=== PATIENT | female | born 1975 | race Two or more races ===

== ENCOUNTER 2016-08-24 20:15 | Emergency (ER) | payer MEDICAID ==
[~2016-08-24] VITALS: Ht 157.5 cm; Wt 77.1 kg
--- NOTE | 2016-08-24 22:10 | NUR ---
pt ambulatory w/ steady gait for c/o of vaginal itching w/ redness x today, denies any VB, no hematuria, lmp x yesterday. AOx4, afebrile w/ resp even & unlabored, nad noted. pt in gown, pending further evdylan DOMINGUEZ. Urine obtained & sent to lab.
[2016-08-24 23:12] LABS: BILIRUBIN,URINE NEGATIVE (NEGATIVE); BLOOD, URINE 3+ Ery/uL (NEGATIVE); COLOR,URINE YELLOW (YELLOW); KETONES,URINE NEGATIVE (NEGATIVE); LEUKOCYTE ESTERASE ,URINE NEGATIVE (NEGATIVE); NITRITE, URINE NEGATIVE (NEGATIVE); PROTEIN,URINE NEGATIVE (NEGATIVE); UGLUCOSE NEGATIVE (NEGATIVE); UROBILINOGEN,URINE 0.2 EU/dL (0.2)
[2016-08-24 23:16] LABS: APPEARANCE,URINE CLEAR (CLEAR)
[2016-08-24 23:21] LABS: PREGNANCY TEST URINE QUAL NEGATIVE (NEGATIVE)
[2016-08-24 23:25] LABS: RBC,URINE 81-100 /HPF (0-2)
[2016-08-24 23:26] LABS: ADD URINE CULTURE NO; BACTERIA,URINE Rare /HPF (None Seen); MUCUS,URINE Rare /LPF (None Seen); SQUAMOUS EPITHELIAL CELL,UR Few /HPF (None Seen); WBC,URINE 0-2 /HPF (0-3)
[2016-08-25 00:35] VITALS: BP 121/75
== END 2016-08-25 00:36 | disposition home or self-care (01) ==
LOC: ER 20:19
DX: N76.0 Acute vaginitis (principal)
CPT/HCPCS: 81001; 84703; 99283; A4606; Z7610; 81000-TC

== ENCOUNTER 2017-06-01 10:35 | Emergency (ER) | payer MEDICAID ==
[~2017-06-01] VITALS: Ht 160 cm; Wt 72.6 kg
--- NOTE | 2017-06-01 12:00 | NUR ---
PATIENT TO EDC/O COUGH CONGESTION X2 DAYS NAUSEA VOMITED BLOOD X2 BODY ACHES. PATIENT IS AAO4. APPEARS IN NO APPARENT DISTRESS. RESPIRATION EVEN AND UNLABORED. PATIENT IS NON DIAPHORETIC. AFBEIRL.E VSS
[2017-06-01] MEDS ORDERED: MORPHINE SULFATE INJ 4 MG/ML DISP.SYRIN ONE ×2 (12:24→13:37)
[2017-06-01] MEDS ORDERED: FAMOTIDINE/PF INJ 20 MG/2 ML VIAL IV ONE ×2 (12:24→12:30)
[2017-06-01] MEDS ORDERED: ONDANSETRON HCL/PF 4 MG/2 ML VIAL ONE (12:24)
[2017-06-01] MEDS ORDERED: ONDANSETRON HCL/PF 4 MG/2 ML VIAL IVP ONE (12:30)
[2017-06-01] MEDS ORDERED: IV NS 0.9% 1,000 ML BAG IV ONE (12:30)
[2017-06-01] MEDS ORDERED: MORPHINE SULFATE INJ 2 MG/ML DISP.SYRIN IV ONE (12:30)
[2017-06-01 12:35] LABS: BASOPHILS % (AUTO) 0.4 % (0.0-2.0); EOSINOPHILS # (AUTO) 0.1 /CMM (0.0-0.7); EOSINOPHILS % (AUTO) 0.9 % (0.0-6.0); HEMATOCRIT 32 % (33-45); HEMOGLOBIN 10.8 g/dL (11.5-14.8); LYMPHOCYTES # (AUTO) 1.2 /CMM (0.8-4.8); LYMPHOCYTES % (AUTO) 13.2 % (20.0-44.0); MEAN CORPUSCULAR HEMOGLOBIN 25 PG (26.0-33.0); MEAN CORPUSCULAR HGB CONC 33 g/dl (31.0-36.0); MEAN CORPUSCULAR VOLUME 73 fL (82-100); MONOCYTES # (AUTO) 0.5 /CMM (0.1-1.30); MONOCYTES % (AUTO) 5.1 % (2.0-12.0); NEUTROPHILS # (AUTO) 7.2 /CMM (1.8-8.9); NEUTROPHILS % (AUTO) 80.4 % (43.0-81.0); PLATELET COUNT (AUTO) 255 /CMM (150-450); RDW COEFFICIENT OF VARIATION 15.9 (11.5-15.0); RED BLOOD CELL COUNT(AUTO) 4.42 MIL/uL (4.0-5.2)
[2017-06-01 12:36] LABS: APPEARANCE,URINE Slightly Cloudy (CLEAR); BILIRUBIN,URINE SMALL (NEGATIVE); BLOOD, URINE Small Ery/uL (NEGATIVE); COLOR,URINE Dark (YELLOW); KETONES,URINE 15 (NEGATIVE); LEUKOCYTE ESTERASE ,URINE Negative (NEGATIVE); NITRITE, URINE Negative (NEGATIVE); PH,URINE 5.5 (5.0-8.0); PROTEIN,URINE 100 mg/dl (NEGATIVE); UGLUCOSE Negative (NEGATIVE)
--- NOTE | 2017-06-01 12:38 | NUR ---
DUE MEDS GIVEN ORDERED
[2017-06-01 12:45] LABS: CALCIUM, SERUM 8.7 mg/dL (8.5-10.1); CREATININE 0.6 mg/dL (0.6-1.3); POTASSIUM 3.6 mmol/L (3.5-5.1)
[2017-06-01 12:47] LABS: BACTERIA,URINE Rare /HPF (None Seen); SQUAMOUS EPITHELIAL CELL,UR Few /HPF (None Seen); WBC,URINE 0-2 /HPF (0-3)
[2017-06-01 12:52] LABS: BILIRUBIN,TOTAL 0.3 mg/dL (0.2-1.0); TOTAL PROTEIN, SERUM 8.1 g/dL (6.4-8.2)
[2017-06-01 12:55] LABS: INR 0.95 (0.87-1.13); PROTHROMBIN TIME 9.9 SECS (9.5-12.7)
[2017-06-01] MEDS: MORPHINE SULFATE INJ 2 MG/ML DISP.SYRIN IV ONE ×2 (13:38→13:39)
[2017-06-01] MEDS ORDERED: METOCLOPRAMIDE HCL 10 MG/2 ML VIAL ONE (13:42)
[2017-06-01] MEDS ORDERED: METOCLOPRAMIDE HCL 10 MG/2 ML VIAL IV ONE (14:00)
[2017-06-01] MEDS ORDERED: IOHEXOL-300 100 ML VIAL IV ONE (14:04)
--- NOTE | 2017-06-01 15:32 | NUR ---
Patient discharged to home in stable condition. Written and verbal after care instructions given. Patient verbalizes understanding of instruction.
--- NOTE | 2017-06-01 15:32 | NUR ---
IV removed. Catheter intact and site benign. Pressure and 4x4 applied to site. No bleeding noted.
[2017-06-01 15:33] VITALS: BP 123/84
== END 2017-06-01 15:33 | disposition home or self-care (01) ==
LOC: ER 10:37
DX: R11.2 Nausea with vomiting, unspecified (principal); R19.7 Diarrhea, unspecified; R10.13 Epigastric pain; R05 Cough; R09.81 Nasal congestion; Z98.890 Other specified postprocedural states
CPT/HCPCS: 36415; 74160; 80048; 80076; 81001; 83690; 84703; 85025; 85730; 96361; 96374; 96375; 96376; 99285; A4216; A4606; J2270 ×2; J2405; J2765; J3490; Q9967; Z7610; 81000-TC

== ENCOUNTER 2017-10-14 11:55 | Emergency (ER) | payer MEDICAID ==
[~2017-10-14] VITALS: Ht 162.6 cm; Wt 72.6 kg
[2017-10-14 12:03] VITALS: BP 121/65
[2017-10-14] MEDS ORDERED: TDAP [DIPH/PERTUSSIS/TET] 0.5 ML VIAL IM ONE ×2 (12:23→12:30)
--- NOTE | 2017-10-14 12:33 | NUR ---
tdap 0.5ml single dose l deltoid, lot# [id number] exp 08/29/19 given as ordered.
== END 2017-10-14 13:15 | disposition home or self-care (01) ==
LOC: ER 11:56
DX: S40.012A Contusion of left shoulder, initial encounter (principal); Z98.890 Other specified postprocedural states; W01.0XXA Fall on same level from slipping, tripping and stumbling without subsequent striking against object, initial encounter; Y93.89 Activity, other specified; Y92.89 Other specified places as the place of occurrence of the external cause; Y99.8 Other external cause status
CPT/HCPCS: 73030-TC; 90715; A4606; Z7610

== ENCOUNTER 2018-08-18 12:27 | Emergency (ER) | payer MEDICAID ==
[~2018-08-18] VITALS: Ht 157.5 cm; Wt 74.4 kg
--- NOTE | 2018-08-18 12:34 | NUR ---
BIB SELF W C/O VAGINAL BLEEDING x 3 MONTHS AND BILATERAL LOWER QUADRANT PAIN RADIATING TO LOWER BACK. TO ER BED 16, HOOKED TO MONITOR, [facility] MD ALVES
--- NOTE | 2018-08-18 12:38 | NUR ---
PA FOSTER AT BEDSIDE
[2018-08-18 12:58] LABS: BASOPHILS # (AUTO) 0.1 /CMM (0.0-0.2); BASOPHILS % (AUTO) 1.3 % (0.0-2.0); HEMATOCRIT 28 % (33-45); LYMPHOCYTES # (AUTO) 2.3 /CMM (0.8-4.8); LYMPHOCYTES % (AUTO) 30.4 % (20.0-44.0); MEAN CORPUSCULAR HGB CONC 32 g/dl (31.0-36.0); MEAN CORPUSCULAR VOLUME 75 fL (82-100); MONOCYTES # (AUTO) 0.5 /CMM (0.1-1.30); MONOCYTES % (AUTO) 6.5 % (2.0-12.0); NEUTROPHILS # (AUTO) 4.5 /CMM (1.8-8.9); NEUTROPHILS % (AUTO) 59.8 % (43.0-81.0); PLATELET COUNT (AUTO) 270 /CMM (150-450); RED BLOOD CELL COUNT(AUTO) 3.73 MIL/uL (4.0-5.2); WHITE BLOOD COUNT (AUTO) 7.6 K/uL (4.3-11.0)
[2018-08-18] MEDS ORDERED: KETOROLAC TROMETHAMINE INJ 30 MG/ML VIAL IV ONE (13:00)
[2018-08-18] MEDS ORDERED: IV NS 0.9% 1,000 ML BAG IV ONE (13:00)
[2018-08-18 13:05] LABS: CALCIUM, SERUM 8.5 mg/dL (8.5-10.1); CREATININE 0.5 mg/dL (0.6-1.3); POTASSIUM 3.5 mmol/L (3.5-5.1)
--- NOTE | 2018-08-18 13:17 | NUR ---
U/S TECH AT BEDSIDE FOR PELVIC ULTRASOUND.
[2018-08-18 13:32] LABS: APPEARANCE,URINE Clear (CLEAR); BILIRUBIN,URINE Negative (NEGATIVE); BLOOD, URINE Large Ery/uL (NEGATIVE); COLOR,URINE Yellow (YELLOW); KETONES,URINE Negative (NEGATIVE); LEUKOCYTE ESTERASE ,URINE Negative (NEGATIVE); NITRITE, URINE Negative (NEGATIVE); PROTEIN,URINE Trace mg/dl (NEGATIVE); UGLUCOSE Negative (NEGATIVE); UROBILINOGEN,URINE 0.2 EU/dL (0.2)
[2018-08-18] MEDS ORDERED: KETOROLAC TROMETHAMINE 15 MG/ML VIAL ONE (13:40)
[2018-08-18 13:42] LABS: ALBUMIN 3.6 g/dL (3.4-5.0); BILIRUBIN,TOTAL 0.1 mg/dL (0.2-1.0)
--- NOTE | 2018-08-18 13:49 | NUR ---
STAT PELVIC ORDERED AT 1243. ON LUNCH BREAK FROM [id number].ATTEMPTED TO START EXAM AT 1316, RN STOPPED ME FROM BEGINNING EXAM TO HAVE PATIENT URINATE TO OBTAIN URINE SAMPLE FOR ANALYSIS PATIENT RETURNED AT 1323. EXAM START TIME 1323 - END TIME 1340
[2018-08-18 13:54] LABS: BACTERIA,URINE None seen /HPF (None Seen); SQUAMOUS EPITHELIAL CELL,UR Few /HPF (None Seen); WBC,URINE 0-2 /HPF (0-3)
--- NOTE | 2018-08-18 14:16 | NUR ---
CALL FROM LAB. PT IS NOT RHOGAM CANDIDATE
--- NOTE | 2018-08-18 14:44 | NUR ---
IV removed. Catheter intact and site benign. Pressure and 4x4 applied to site. No bleeding noted.Patient discharged to home in stable condition. Written and verbal after care instructions given. Patient verbalizes understanding of instruction.
[2018-08-18 14:46] VITALS: BP 108/67
== END 2018-08-18 14:47 | disposition home or self-care (01) ==
LOC: ER 12:31
DX: N93.9 Abnormal uterine and vaginal bleeding, unspecified (principal); D64.9 Anemia, unspecified; N83.202 Unspecified ovarian cyst, left side; Z98.890 Other specified postprocedural states
CPT/HCPCS: 36415; 76856; 80048; 80076; 81001; 83690; 84703; 85025; 85730; 96374; 99284; A4606; J1885; J7030; 81000-TC

== ENCOUNTER 2018-08-29 04:55 | Emergency (ER) | payer MEDICAID ==
[~2018-08-29] VITALS: Ht 157.5 cm; Wt 78.9 kg
[2018-08-29 05:03] VITALS: BP 118/79
[2018-08-29] MEDS ORDERED: KETOROLAC TROMETHAMINE INJ 60 MG/2 ML VIAL IM ONE ×2 (05:19→05:30)
== END 2018-08-29 05:26 | disposition home or self-care (01) ==
LOC: ER 04:56
DX: N93.8 Other specified abnormal uterine and vaginal bleeding (principal); M54.5 Low back pain; G89.29 Other chronic pain; Z98.890 Other specified postprocedural states
CPT/HCPCS: 96372; 99283; J1885

== ENCOUNTER 2018-12-18 19:25 | Inpatient (IN) | payer MEDICAID ==
[~2018-12-18] VITALS: Ht 157.5 cm; Wt 73.0 kg
--- NOTE | 2018-12-18 19:51 | NUR ---
BIBSELF WITH FAMILY FROM HOME. AAOX4. SPANAISH SPEAKING, FAMILY AT BEDSIDE TO TRANSLATE. NO RESP DISTRESS, BREATHING EVEN AND UNLABORED. AMBULATORY. C/O R STERNAL BORDER PAIN X 2 WEEKS, TIGHTNESS AND PRESSURE LIKE. REPORTS SOB WHEN EXERTING EFFORT. PT ALSO COMPLAINS OF HAVING HARD TIME HAVING BM FOR THE PAST 2 WEEKS. SHE HAVE SMALL HARD BM S AND NOW HAVE A BLEEDING HEMORRHOID. DENIES N/V. PT IS AFEBRILE. TO ER BED 9. MD AT BEDSIDE. ORDERS RECEIVED
[2018-12-18 20:06] LABS: BASOPHILS # (AUTO) 0.1 /CMM (0.0-0.2); EOSINOPHILS % (AUTO) 2.4 % (0.0-6.0); HEMATOCRIT 22 % (33-45); LYMPHOCYTES # (AUTO) 2.1 /CMM (0.8-4.8); LYMPHOCYTES % (AUTO) 29.8 % (20.0-44.0); MEAN CORPUSCULAR HGB CONC 30 g/dl (31.0-36.0); MEAN CORPUSCULAR VOLUME 64 fL (82-100); MONOCYTES # (AUTO) 0.5 /CMM (0.1-1.30); MONOCYTES % (AUTO) 7.4 % (2.0-12.0); NEUTROPHILS # (AUTO) 4.2 /CMM (1.8-8.9); NEUTROPHILS % (AUTO) 59.4 % (43.0-81.0); PLATELET COUNT (AUTO) 211 /CMM (150-450); RED BLOOD CELL COUNT(AUTO) 3.49 MIL/uL (4.0-5.2); WHITE BLOOD COUNT (AUTO) 7.1 K/uL (4.3-11.0)
[2018-12-18 20:10] LABS: HEMOGLOBIN 6.7 g/dL (11.5-14.8)
[2018-12-18 20:14] LABS: CALCIUM, SERUM 8.2 mg/dL (8.5-10.1); CREATININE 0.5 mg/dL (0.6-1.3); POTASSIUM 3.2 mmol/L (3.5-5.1)
[2018-12-18 20:20] LABS: ALBUMIN 3.1 g/dL (3.4-5.0); BILIRUBIN,DIRECT 0.1 mg/dL (0.0-0.2); BILIRUBIN,TOTAL 0.3 mg/dL (0.2-1.0); TOTAL PROTEIN, SERUM 6.4 g/dL (6.4-8.2)
[2018-12-18] MEDS ORDERED: IV NS 0.9% 250 ML IV ONE (20:28)
[2018-12-18] MEDS ORDERED: CT SWABBABLE VALVE TRANS SET 1 EA INFUS.SET MC ONE (20:28)
[2018-12-18] MEDS ORDERED: IOHEXOL-300 100 ML VIAL IV ONE (20:28)
--- NOTE | 2018-12-18 20:30 | NUR ---
AT BEDSIDE FOR RECATLO EXAM. CALLY, EMT AT BEDSIDE FOR BELT AND LINK SHOP SUPERVISOR
[2018-12-18 20:36] LABS: LYMPHOCYTES % (MANUAL) 30 % (16-48); MONOCYTES % (MANUAL) 3 % (0-11.0); NEUTROPHILS % (MANUAL) 67 (42-76)
--- NOTE | 2018-12-18 20:45 | NUR ---
PT WHEELED TO JANETH ZAVALA
--- NOTE | 2018-12-18 21:16 | NUR ---
BED 119-2
[2018-12-18] MEDS ORDERED: ACETAMINOPHEN 325 MG TABLET PO PRN (21:30)
[2018-12-18] MEDS ORDERED: Z GUARD REMEDY 2 OZ OINT TP PRN (21:30)
[2018-12-18] MEDS ORDERED: MAG HYDROX/AL HYDROX/SIMETH 30 ML UDC PO PRN (21:30)
[2018-12-18] MEDS ORDERED: ZOLPIDEM TARTRATE 5 MG TABLET PO PRN (21:30)
[2018-12-18] MEDS ORDERED: MAGNESIUM HYDROXIDE 30 ML UDC PO PRN (21:30)
--- NOTE | 2018-12-18 21:45 | NUR ---
REPORT GIVEN TO TA OSEGUERA FOR PARISH. PT GOING TO 119
[2018-12-18 22:10] VITALS: BP 118/69
--- NOTE | 2018-12-18 22:10 | NUR ---
MACHINE SWEEPER BRUSH MAKER NOTE PATIENT IS AOX3, SPEECH CLEAR, NO CARDIAC OR RESPIRATORY DISTRESS, ON TELE SR, SKIN DRY AND INTACT, LAC #20G, PATENT AND FLUSHING, DRESSING IS CLEAN AND DRY, DAUGHTER AT BEDSIDE, SAFETY MAINTAINED AT ALL TIMES, BED IN LOW, LOCKED POSITION, CALL LIGHT WITHIN REACH,WILL CONTINUE TO MONITOR FOR ANY CHANGES IN CONDITION.
--- NOTE | 2018-12-18 22:18 | NUR ---
PT TRANSPORTED TO UNIT WITH EMT AND RN AT BEDSIDE. NAD NOTED DURING TRANSPORT. PT AMBULATED TO BED [facility]
[2018-12-18] MEDS: HYDROCODONE/APAP 5/325MG 1 EACH TABLET PO PRN (22:21)
[2018-12-18 23:38] VITALS: BP 128/70
[2018-12-18 23:53] VITALS: BP 130/68
[2018-12-19] VITALS (9 sets, daily range): BP systolic 107–131; BP diastolic 60–71
[2018-12-19] MEDS ORDERED: METRONIDAZOLE 500MG/ NS 100ML 500 MG in PREMIX 1 EA IV SCH ×2
[2018-12-19] MEDS: ONDANSETRON HCL/PF 4 MG/2 ML VIAL IVP PRN (00:16)
[2018-12-19] MEDS ORDERED: LEVOFLOXACIN 500 MG /D5W 100ML 100 ML IV ONE (00:26)
[2018-12-19] MEDS ORDERED: METRONIDAZOLE 500MG/ NS 100ML 100 ML IV ONE (00:26)
[2018-12-19] MEDS: LEVOFLOXACIN 500 MG /D5W 100ML 500 MG in PREMIX 1 EA IV SCH (04:11)
[2018-12-19 07:03] LABS: BASOPHILS # (AUTO) 0.1 /CMM (0.0-0.2); BASOPHILS % (AUTO) 1.3 % (0.0-2.0); EOSINOPHILS % (AUTO) 2.8 % (0.0-6.0); HEMATOCRIT 25 % (33-45); HEMOGLOBIN 7.9 g/dL (11.5-14.8); LYMPHOCYTES # (AUTO) 2.3 /CMM (0.8-4.8); LYMPHOCYTES % (AUTO) 39.4 % (20.0-44.0); MEAN CORPUSCULAR HGB CONC 31 g/dl (31.0-36.0); MEAN CORPUSCULAR VOLUME 66 fL (82-100); MONOCYTES # (AUTO) 0.4 /CMM (0.1-1.30); MONOCYTES % (AUTO) 6.8 % (2.0-12.0); NEUTROPHILS # (AUTO) 2.9 /CMM (1.8-8.9); NEUTROPHILS % (AUTO) 49.7 % (43.0-81.0); PLATELET COUNT (AUTO) 178 /CMM (150-450); RED BLOOD CELL COUNT(AUTO) 3.86 MIL/uL (4.0-5.2); WHITE BLOOD COUNT (AUTO) 5.8 K/uL (4.3-11.0)
[2018-12-19 07:17] LABS: CALCIUM, SERUM 7.8 mg/dL (8.5-10.1); CREATININE 0.5 mg/dL (0.6-1.3); MAGNESIUM 1.6 mg/dL (1.8-2.4); PHOSPHORUS 2.4 mg/dL (2.5-4.9); POTASSIUM 3.5 mmol/L (3.5-5.1)
--- NOTE | 2018-12-19 07:30 | NUR ---
TELE/RN OPENING NOTES RECEIVED PATIENT IN BED SLEEPING COMFORTABLY. EASILY AROUSABLE. PATIENT ABLE TO RESPOND TO VERBAL AND TACTILE STIMULI. PATIENT IS ALERT AND ORIENTED X3. PATIENT IS MACEDONIAN SPEAKING WITH DAUGHTER AT BEDSIDE. NO PAIN OR ACUTE DISTRESS AT THIS TIME. RESPIRATION EVEN AND UNLABORED. SKIN IS DRY WARM TO TOUCH. PATIENT NOTED WITH LEFT AC IV ACCESS #20G. INTACT AND PATENT. FLUSHING WELL. NO S/S OF INFECTION OR INFILTRATION. ALL NEEDS ANTICIPATED. CALL LIGHT WITHIN REACHED. BED LOCKED AND IN LOWEST POSITION. SAFETY MAINTAINED. WILL CONTINUE TO MONITOR CLOSELY.
[2018-12-19] MEDS: METRONIDAZOLE 500MG/ NS 100ML 500 MG in PREMIX 1 EA IV SCH ×3 (08:23→20:29)
[2018-12-19 09:22] LABS: BAND % (MANUAL) 2 % (0.0-5.0); EOSINOPHILS % (MANUAL) 2 % (0-4); LYMPHOCYTES % (MANUAL) 37 % (16-48); MONOCYTES % (MANUAL) 7 % (0-11.0); NEUTROPHILS % (MANUAL) 52 (42-76)
[2018-12-19] MEDS: Magnesium 1GM/D5W 100ML PREMIX 100 ML IV SCH ×2 (09:43→10:43)
[2018-12-19] MEDS ORDERED: K PHOS NEUTRAL 250 MG TABLET PO ONE (10:00)
[2018-12-19] MEDS: DOCUSATE SODIUM 100 MG CAPSULE PO SCH (16:20)
--- NOTE | 2018-12-19 19:30 | NUR ---
MS/RN OPENING NOTES PT ALERT AND ORIENTED TIMES 4. PROVIDED SAFETY AND COMFORT. NO PAIN OR ACUTE DISTRESS AT THIS TIME. RESPIRATION EVEN AND UNLABORED. SKIN IS DRY WARM TO TOUCH. IV PATENT. WILL CONTINUE TO MONITER AND CARRY OUT POC.
--- NOTE | 2018-12-19 19:37 | NUR ---
MS/RN CLOSING NOTES PATIENT REMAINED IN STABLE CONDITION THROUGHOUT THE SHIFT. PROVIDED SAFETY AND COMFORT. NO PAIN OR ACUTE DISTRESS AT THIS TIME. RESPIRATION EVEN AND UNLABORED. SKIN IS DRY WARM TO TOUCH. IV ACCESS ON LAC INTACT AND PATENT. FLUSHING WELL. PATIENT WAS SEEN AND EVALUATED BY DR. MANDEL WITH ORDERS TO DO EGD AND COLONOSCOPY ON Saturday12/22/18. ALSO, PATIENT NEEDS TO BE NPO SATURDAY MIDNIGHT WITH COLON PREP. ALSO, RECTAL EXAM DONE BY DR. MANDEL AT BEDSIDE AND NOTED AN EXTERNAL HEMORRHOIDS. ALL NEEDS ANTICIPATED. CALL LIGHT WITHIN REACHED. WILL CONTINUE TO MONITOR. ENDORSED TO PM NURSE CHANNELLE REGARDING THE PROCEDURES.
--- NOTE | 2018-12-19 19:50 | NUR ---
GOT ENDORSEMENT FROM JULES AM SHIFT THAT CONSENT IS PENDING FOR COLONOSCOPY AND EGD. SCHEDULED FOR SATURDAY AND NPO SATURDAY AT MIDNIGHT. GOT CONSENT SIGNED FROM PATIENT AND PLACED IN CHART.
[2018-12-20] VITALS: BP 112/60
[2018-12-20] MEDS: LEVOFLOXACIN 500 MG /D5W 100ML 500 MG in PREMIX 1 EA IV SCH (00:14)
[2018-12-20] MEDS: HYDROCODONE/APAP 5/325MG 1 EACH TABLET PO PRN ×2 (00:38→18:17)
--- NOTE | 2018-12-20 00:39 | NUR ---
ON ROUNDS PT COMPLAINING OF LOWER LEFT CALF PAIN THAT IS ACHING AND IS IN PAIN AN 8 OUT OF 10. ASSESMENT DONE AND NORCO GIVEN TO ALIVIATE PAIN. WILL ENDORSE TO AM SHIFT TO ASSES FURTHER.
[2018-12-20 04:00] VITALS: BP 108/43
[2018-12-20] MEDS: METRONIDAZOLE 500MG/ NS 100ML 500 MG in PREMIX 1 EA IV SCH ×3 (04:48→21:32)
[2018-12-20 06:29] LABS: BASOPHILS # (AUTO) 0.1 /CMM (0.0-0.2); BASOPHILS % (AUTO) 1.6 % (0.0-2.0); EOSINOPHILS % (AUTO) 1.7 % (0.0-6.0); HEMATOCRIT 26 % (33-45); LYMPHOCYTES # (AUTO) 1.3 /CMM (0.8-4.8); LYMPHOCYTES % (AUTO) 21.3 % (20.0-44.0); MEAN CORPUSCULAR HGB CONC 31 g/dl (31.0-36.0); MEAN CORPUSCULAR VOLUME 65 fL (82-100); MONOCYTES # (AUTO) 0.5 /CMM (0.1-1.30); MONOCYTES % (AUTO) 7.4 % (2.0-12.0); NEUTROPHILS # (AUTO) 4.3 /CMM (1.8-8.9); PLATELET COUNT (AUTO) 194 /CMM (150-450); RED BLOOD CELL COUNT(AUTO) 3.93 MIL/uL (4.0-5.2); WHITE BLOOD COUNT (AUTO) 6.3 K/uL (4.3-11.0)
[2018-12-20 06:58] LABS: ALBUMIN 3.1 g/dL (3.4-5.0); BILIRUBIN,TOTAL 0.4 mg/dL (0.2-1.0); CREATININE 0.6 mg/dL (0.6-1.3); MAGNESIUM 1.7 mg/dL (1.8-2.4); PHOSPHORUS 2.3 mg/dL (2.5-4.9); POTASSIUM 3.3 mmol/L (3.5-5.1); TOTAL PROTEIN, SERUM 6.3 g/dL (6.4-8.2)
--- NOTE | 2018-12-20 07:20 | NUR ---
RN INITIAL NOTES PATIENT IN BED ASLEEP BUT EASILY AROUSABLE. DAUGHTER AT BEDSIDE FOR TRANSLATION, PATIENT SPEAKS BOLIVIAN. AMBULATORY WITH STEADY GAIT. NO COMPLAINS OF PAIN NOR SOB. BED ON LOWEST POSITION. CALL LIGHT WITHIN REACH. WILL CONTINUE TO MONITOR
--- NOTE | 2018-12-20 07:26 | NUR ---
MS/ CLOSING NOTES PT ALERT AND ORIENTED TIMES 4. PROVIDED SAFETY AND COMFORT. NO PAIN OR ACUTE DISTRESS AT THIS TIME. RESPIRATION EVEN AND UNLABORED. SKIN IS DRY WARM TO TOUCH. IV PATENT. WILL ENDORSE TO ANTELMO TO CONTINUE TO MONITER
[2018-12-20 08:00] VITALS: BP 96/40
[2018-12-20] MEDS: DOCUSATE SODIUM 100 MG CAPSULE PO SCH ×2 (08:16→16:29)
[2018-12-20 09:00] VITALS: BP 96/40
[2018-12-20] MEDS ORDERED: POTASSIUM CL. PREMIX PERIPHER. 50 ML IV SCH (09:00)
[2018-12-20] MEDS ORDERED: K PHOS NEUTRAL 250 MG TABLET PO ONE (10:00)
--- NOTE | 2018-12-20 10:01 | NUR ---
RN NOTES PATIENT IS COMPLAINING OF HAVING BURNING PAIN ON HER LEFT AC IV SITE WHILE KCL IS RUNNING AT 50ML/HR. PATIENT REQUESTED TO REMOVE THE SITE AND JUST INSERT A NEW ONE. INSERTED A NEW SITE: LEFT HAND #20. RAN THE KCL AND STILL GALVIN. CALLED PHARMACY AND THEY WILL CHANGE IT TO PO INSTEAD OF IV.
[2018-12-20] MEDS: Magnesium 1GM/D5W 100ML PREMIX 100 ML IV SCH ×2 (10:05→11:12)
[2018-12-20] MEDS: POTASSIUM CHLORIDE 20 MEQ TAB.PRT.SR PO SCH ×2 (10:05→11:12)
[2018-12-20 12:00] VITALS: BP 96/40
--- NOTE | 2018-12-20 15:23 | NUR ---
RN NOTES LIZETH MONCADA AT BEDSIDE, PATIENT AWARE THAT SHE IS GOING TO HAVE A PROCEDURE ON SATURDAY - EGD AND COLONOSCOPY. CONSENT SIGNED IN CHART. NEW ORDER OF DVT PUMPS PER AP.
[2018-12-20 16:00] VITALS: BP 118/79
[2018-12-20] MEDS: ONDANSETRON HCL/PF 4 MG/2 ML VIAL IVP PRN (18:17)
--- NOTE | 2018-12-20 18:29 | NUR ---
RN NOTES PATIENT CALLED AND VOMITED X1. WAS GIVEN ZOFRAN. PATIENT COMPLAINED OF CHEST PAIN, AND WAS CRYING FOR PAIN. ADMINISTERED NORCO FOR PAIN, CALLED [facility] TO PAGE LIZETH MONCADA TO GET ORDERS. WAITING FOR A CALL BACK Addendum: 12/20/18 at 1836 by ELLEN DE GUZMAN RN CHEST PAIN LEVEL 8/10, BUT PER PATIENT, PAIN COMES AND GOES SO AROUND 5/10 AND 8/10
--- NOTE | 2018-12-20 18:33 | NUR ---
RN NOTES FAMILY AT BEDSIDE. PATIENT STOPPED CRYING AND SAYING PAIN WENT DOWN TO AROUND 3/10.
--- NOTE | 2018-12-20 18:45 | NUR ---
TA STANLEY NP CALLED BACK. ORDERED CXR AND EKG STAT. ORDERED CARRIED OUT.
--- NOTE | 2018-12-20 18:57 | NUR ---
RN CLOSING NOTE PATIENT IN BED AWAKE AND ALERT. CHEST PAIN AND NAUSEA STOPPED. ZOFRAN AND NORCO GIVEN. ORDERS FROM MD CARRIED OUT. CXR AT BEDSIDE AT THIS TIME. VS STABLE THROUGHOUT THE SHIFT. ALL MEDS GIVEN. NO COMPLAINS OF ANY SOB, ON ROOM AIR. FAMILY AT BEDSIDE. BED IN LOWEST POSITION. CALL LIGHT WITHIN REACH. WILL ENDORSE TO NOC SHIFT FOR PARISH
--- NOTE | 2018-12-20 19:14 | NUR ---
RT NOTE PRIOR TO PERFORMING EKG. RT AKSED PT IF SHE WANTED A FEMALE NURSE PRESENT FOR PROCEDURE. PT SAID NO. FAMILY BEDSIDE. TA HUGHES AWARE. STAT EKG RESULTS RELAYED TO TA HUGHES
[2018-12-21] VITALS: BP 122/77
[2018-12-21] MEDS: LEVOFLOXACIN 500 MG /D5W 100ML 500 MG in PREMIX 1 EA IV SCH (00:32)
[2018-12-21] MEDS: METRONIDAZOLE 500MG/ NS 100ML 500 MG in PREMIX 1 EA IV SCH ×3 (05:28→20:44)
[2018-12-21 06:48] LABS: CREATININE 0.5 mg/dL (0.6-1.3); MAGNESIUM 1.8 mg/dL (1.8-2.4); PHOSPHORUS 2.6 mg/dL (2.5-4.9); POTASSIUM 3.8 mmol/L (3.5-5.1)
--- NOTE | 2018-12-21 07:01 | NUR ---
MS/ CLOSING NOTES PT ALERT AND ORIENTED TIMES 4. PROVIDED SAFETY AND COMFORT. NO PAIN OR ACUTE DISTRESS AT THIS TIME. RESPIRATION EVEN AND UNLABORED. SKIN IS DRY WARM TO TOUCH. IV PATENT.. CHANGED IV SITE TO RIGHT R FOREARM 22 G. WILL ENDORSE TO AM SHIFT TO POC.
[2018-12-21 07:11] LABS: BASOPHILS # (AUTO) 0.1 /CMM (0.0-0.2); HEMATOCRIT 25 % (33-45); HEMOGLOBIN 7.9 g/dL (11.5-14.8); LYMPHOCYTES # (AUTO) 1.8 /CMM (0.8-4.8); LYMPHOCYTES % (AUTO) 31.3 % (20.0-44.0); MEAN CORPUSCULAR HGB CONC 31 g/dl (31.0-36.0); MEAN CORPUSCULAR VOLUME 66 fL (82-100); MONOCYTES # (AUTO) 0.5 /CMM (0.1-1.30); MONOCYTES % (AUTO) 8.4 % (2.0-12.0); NEUTROPHILS # (AUTO) 3.4 /CMM (1.8-8.9); NEUTROPHILS % (AUTO) 57.3 % (43.0-81.0); PLATELET COUNT (AUTO) 203 /CMM (150-450); RED BLOOD CELL COUNT(AUTO) 3.86 MIL/uL (4.0-5.2); WHITE BLOOD COUNT (AUTO) 5.9 K/uL (4.3-11.0)
[2018-12-21 08:00] VITALS: BP 120/66
--- NOTE | 2018-12-21 08:00 | NUR ---
RN NOTES RECEIVED PATIENT IN THE BED RESTING. PATIENT AMERICAN SPEAKER A/O X4. PATIENT REFUSED PAIM, NO ACUTE RESPIRATORY DISTRESS. PATIENT AMBULATORY SELF CARE. IV ACCESS ON RIGHT FA INTACT SL. V/S STABLE. ENCOURAGED TO EXPRESS FEELINGS AND CONCERNS. PATIENT REFUSED RECTAL BLEEDING. ABDOMEN SOFT TO TOUCH, ACTIVE BOWEL SOUNDS IN FOUR QUADRANTS. CALL LIGHT WITHIN TO REACH. CONTINUED MONITORING. DAUGHTER NEXT TO THE BED.
[2018-12-21] MEDS: DOCUSATE SODIUM 100 MG CAPSULE PO SCH ×2 (10:44→17:01)
--- NOTE | 2018-12-21 11:24 | NUR ---
RN NOTES SEEN PATIENT BY EMILY MONCADA, NO NEW ORDERS AT THIS TIME, CONTINUED MONITORING.
[2018-12-21 16:30] VITALS: BP 133/95
--- NOTE | 2018-12-21 18:30 | NUR ---
RN NOTES PATIENT STABLE, SIGN CONSENT FORM, ADMINISTERED SCHEDULED MEDICATION, V/S STABLE. PATIENT AMBULATORY SELF CARE. PATIENT REFUSED PAIN, NO ACUTE RESPIRATORY DISTRESS. CALL LIGHT WITHIN TO REACH. ENDORSED ONCOMING NURSE FOLLOW PLAN OF CARE.
[2018-12-21] MEDS ORDERED: PEG 3350/NA SULF,BICARB,CL/KCL 4,000 ML BOTTLE PO ONE (19:30)
[2018-12-21 20:00] VITALS: BP 133/61
--- NOTE | 2018-12-21 20:00 | NUR ---
MS RN NOTE PT IN BED AWAKE. A/O X 4 SRI LANKAN SPEAKING. NO DISTRESS OR DISCOMFORT NOTED. DENIES PAIN. WILL START HER ON GOLYTELY ORDERED. RFA #22 G S/L INTACT AND PATENT. ALL NEEDS ATTENDED. VSS. CONTINUE TO MONITOR HER.
--- NOTE | 2018-12-21 23:04 | NUR ---
MS RN NOTE PT IN BED AWAKE. DRINKING GOLYTELY, PT IS HAVING TOUGH TIME DRINKING, STATES "TASTE IS AWFUL". REPORT GIVEN TO NURSE OLSEN FOR CONTINUE TO CARE.
[2018-12-22] VITALS: BP 126/59
[2018-12-22] MEDS: LEVOFLOXACIN 500 MG /D5W 100ML 500 MG in PREMIX 1 EA IV SCH (00:28)
--- NOTE | 2018-12-22 01:32 | NUR ---
REPORT RECEIVED FROM CELE TAI. WILL CONTINUE CARE. Addendum: 12/22/18 at 0134 by LIZ MUÑIZ RN TIME AND DATE 12/21 1749
--- NOTE | 2018-12-22 01:35 | NUR ---
PT REFUSED FINISHING [email or web address], DOES NOT LIKE THE TASTE OF WATER, FEELS LIKE THROWING UP, EXPLAINED THAT EGD/COLONOSCOPY WOULD NOT BE DONE IS SHE DID NOT FINISH THE [email or web address], PT DOES NOT WANT THE TEST ANYMORE, WILL CANCEL PROCEDURE.
[2018-12-22 04:00] VITALS: BP 112/60
[2018-12-22] MEDS: METRONIDAZOLE 500MG/ NS 100ML 500 MG in PREMIX 1 EA IV SCH ×2 (04:32→12:11)
--- NOTE | 2018-12-22 06:19 | NUR ---
RN MS CLOSING NOTE PT REMAINS IN BED SLEEPING, BREATHING EVEN AND UNLABORED ON RA. NO COMPLAIN OF PAIN OR DISCOMFORT AT THE MOMENT. IV ACCESS ON THE R FA 22G SL. PROCEDURE IN AM CANCELLED, PT DID NOT FINISH GOLYTELY. BED IN LOWEST LOCKED POSITION, CALL LIGHT WITHIN REACH AT ALL TIMES, WILL ENDORSE TO DAY NURSE FOR PARISH.
[2018-12-22 06:37] LABS: BASOPHILS # (AUTO) 0.1 /CMM (0.0-0.2); EOSINOPHILS % (AUTO) 1.3 % (0.0-6.0); HEMATOCRIT 27 % (33-45); HEMOGLOBIN 8.2 g/dL (11.5-14.8); LYMPHOCYTES # (AUTO) 1.6 /CMM (0.8-4.8); LYMPHOCYTES % (AUTO) 22.3 % (20.0-44.0); MEAN CORPUSCULAR HGB CONC 31 g/dl (31.0-36.0); MEAN CORPUSCULAR VOLUME 65 fL (82-100); MONOCYTES # (AUTO) 0.5 /CMM (0.1-1.30); MONOCYTES % (AUTO) 7.6 % (2.0-12.0); NEUTROPHILS # (AUTO) 4.8 /CMM (1.8-8.9); NEUTROPHILS % (AUTO) 67.8 % (43.0-81.0); PLATELET COUNT (AUTO) 211 /CMM (150-450); RED BLOOD CELL COUNT(AUTO) 4.09 MIL/uL (4.0-5.2); WHITE BLOOD COUNT (AUTO) 7.1 K/uL (4.3-11.0)
[2018-12-22 06:59] LABS: CALCIUM, SERUM 8.2 mg/dL (8.5-10.1); CREATININE 0.5 mg/dL (0.6-1.3); MAGNESIUM 1.7 mg/dL (1.8-2.4); PHOSPHORUS 3.2 mg/dL (2.5-4.9); POTASSIUM 3.9 mmol/L (3.5-5.1)
--- NOTE | 2018-12-22 07:25 | NUR ---
MS/RN OPENING NOTES RECEIVED PATIENT IN BED AWAKE AND ABLE TO MAKE NEEDS KNOWN. ALERT AND ORIENTED X4 FAROESE SPEAKING. NO PAIN OR ACUTE DISTRESS AT THIS TIME. RESPIRATION EVEN AND UNLABORED. SKIN IS DRY WARM TO TOUCH. NOTED WITH RFA #22 G S/L INTACT AND PATENT. FLUSHING WELL. NO S/S OF INFECTION OR INFILTRATION. ALL NEEDS ANTICIPATED. CALL LIGHT WITHIN REACHED. BED LOCKED AND IN LOWEST POSITION. SAFETY MAINTAINED. CONTINUE TO MONITOR CLOSELY.
[2018-12-22 08:00] VITALS: BP_SYST 103; BP_DIAS 48; BP_DIAS 68
[2018-12-22] MEDS: DOCUSATE SODIUM 100 MG CAPSULE PO SCH ×2 (08:37→16:45)
[2018-12-22] MEDS: Magnesium 1GM/D5W 100ML PREMIX 100 ML IV SCH ×2 (09:29→10:42)
[2018-12-22 16:00] VITALS: BP_SYST 108; BP_SYST 140; BP_DIAS 54; BP_DIAS 63
--- NOTE | 2018-12-22 18:50 | NUR ---
MS/RN CLOSING NOTES PATIENT REMAINS IN STABLE CONDITION. PROVIDED COMFORT AND SAFETY. ACCORDING TO DR. MONCADA PATIENT HAS TO SIGN AN AMA FORM DUE TO HER REFUSING TO DO THE EGD AND COLONOSCOPY PROCEDURE THAT WAS RECOMMENDED BY DR. MANDEL. PATIENT WAS ABLE TO SIGN THE AMA FORM. PATIENT IS WAITING FOR TO COME AND PICK HER UP. ALL NEEDS ANTICIPATED. KEPT CLEAN AND DRY CALL LIGHT WITHIN REACHED. BED LOCKED AND IN LOWEST POSITION. WILL CONTINUE TO MONITOR. ENDORSED TO PM NURSE FOR PARISH.
--- NOTE | 2018-12-22 19:20 | NUR ---
RN OPENING NOTES PT RECEIVED AWAKE, SITTING IN THE CHAIR. ON ROOM AIR, BREATHING EVEN AND UNLABORED. DIVEHI/CHINESE SPEAKING. WAITING FOR TO COME PICK HER UP AT 1930, LEAVING AMA. IV TO RFA WAS REMOVED BY DAY RN. BED IN LOW/LOCKED POSITION WITH CALL LIGHT IN REACH. BILAT. UPPER SIDE RAILS IN PLACE. WILL CONTINUE TO MONITOR
[2018-12-22 19:30] VITALS: BP 128/74
--- NOTE | 2018-12-22 19:40 | NUR ---
RN NOTES PT LEFT UNIT IN STABLE CONDITION ACCOMPANIED BY 2 FAMILY MEMBERS. IV REMOVED, WRISTBANDS REMOVED. AMA PAPERWORK SIGNED. BELONGINGS LEFT WITH PT
== END 2018-12-22 19:40 | disposition home or self-care (01) | DRG 254 ==
LOC: ER 19:27 → TELE1 21:23 → MEDSG1 12-19 08:59
PROVIDERS: ADMIT Internal Medicine; ATTEND Hospitalist
PROC: 30233N1 Transfusion of Nonautologous Red Blood Cells into Peripheral Vein, Percutaneous Approach (ICD-10-PCS; principal; 2018-12-18)
DX: K64.9 Unspecified hemorrhoids (principal); E44.0 Moderate protein-calorie malnutrition; E83.42 Hypomagnesemia; E83.39 Other disorders of phosphorus metabolism; K57.92 Diverticulitis of intestine, part unspecified, without perforation or abscess without bleeding; E87.6 Hypokalemia; Z68.30 Body mass index [BMI] 30.0-30.9, adult; N93.8 Other specified abnormal uterine and vaginal bleeding; Z98.890 Other specified postprocedural states; Z91.14 Patient's other noncompliance with medication regimen; Z91.19 Patient's noncompliance with other medical treatment and regimen; Z98.891 History of uterine scar from previous surgery; D50.9 Iron deficiency anemia, unspecified; N83.201 Unspecified ovarian cyst, right side
CPT/HCPCS: 36415; 71045-TC; 80048-TC; 80053-TC; 80076-TC; 82378; 83540-TC; 83690-TC; 83735-TC; 84100-TC; 84484-TC; 84703-TC; 85025-TC; 85610-TC; 86301; 86850-TC; 86921-TC; 87081-TC; 93307-TC; A4216; G0378; J1956; J2405; J3475; J3480; J3490; J7040; J7050; P9016-BL; Q9967

== ENCOUNTER 2019-01-10 01:04 | Emergency (ER) | payer MEDICAID ==
[~2019-01-10] VITALS: Ht 157.5 cm; Wt 73.0 kg
[2019-01-10 01:18] VITALS: BP 113/67
== END 2019-01-10 02:28 | disposition home or self-care (01) ==
LOC: ER 01:15
DX: I80.8 Phlebitis and thrombophlebitis of other sites (principal); D64.9 Anemia, unspecified; Z98.890 Other specified postprocedural states
CPT/HCPCS: 73090-TC

== ENCOUNTER 2019-06-10 14:52 | Inpatient (IN) | payer MEDICAID ==
[~2019-06-10] VITALS: Ht 154.9 cm; Wt 74.8 kg
[2019-06-10] MEDS ORDERED: KETOROLAC TROMETHAMINE INJ 30 MG/ML VIAL ONE (15:24)
[2019-06-10] MEDS ORDERED: KETOROLAC TROMETHAMINE INJ 30 MG/ML VIAL IV ONE (15:30)
[2019-06-10] MEDS ORDERED: IV NS 0.9% 500 ML BAG IV ONE (15:30)
[2019-06-10 15:34] LABS: BASOPHILS # (AUTO) 0.1 /CMM (0.0-0.2); BASOPHILS % (AUTO) 1.5 % (0.0-2.0); HEMATOCRIT 24 % (33-45); LYMPHOCYTES # (AUTO) 1.6 /CMM (0.8-4.8); LYMPHOCYTES % (AUTO) 21.3 % (20.0-44.0); MEAN CORPUSCULAR HGB CONC 29 g/dl (31.0-36.0); MEAN CORPUSCULAR VOLUME 61 fL (82-100); MONOCYTES # (AUTO) 0.5 /CMM (0.1-1.30); MONOCYTES % (AUTO) 7.4 % (2.0-12.0); NEUTROPHILS % (AUTO) 67.8 % (43.0-81.0); PLATELET COUNT (AUTO) 226 /CMM (150-450); WHITE BLOOD COUNT (AUTO) 7.4 K/uL (4.3-11.0)
--- NOTE | 2019-06-10 15:35 | NUR ---
PT AAOX4. AMBULATORY C/O MID CHEST PAIN 6/10 AND BACK FLANK PAIN. PLACED ON MONITOR AND PULSE OX. MD AT BEDSIDE FOR EVAL.
--- NOTE | 2019-06-10 15:36 | NUR ---
BLOOD COLLECTED AND SENT TO LAB
[2019-06-10 15:42] LABS: CALCIUM, SERUM 8.6 mg/dL (8.5-10.1); CARBON DIOXIDE 26 mmol/L (21-32); CHLORIDE 107 mmol/L (98-107); CREATININE 0.6 mg/dL (0.6-1.3); GLUCOSE 104 mg/dL (74-106); POTASSIUM 3.6 mmol/L (3.5-5.1); SODIUM SERUM 142 mmol/L (136-145); UREA NITROGEN, BLOOD 9 mg/dL (7-18)
[2019-06-10 15:56] LABS: HEMOGLOBIN 6.9 g/dL (11.5-14.8)
--- NOTE | 2019-06-10 16:23 | NUR ---
CALLED NURSING SUP FOR TELE BED.
--- NOTE | 2019-06-10 17:02 | NUR ---
NURSING SUP GAVE TELE BED 316-2.
[2019-06-10] MEDS ORDERED: HYDROCODONE/APAP 5/325MG 1 EACH TABLET PO PRN (17:30)
[2019-06-10] MEDS ORDERED: TEMAZEPAM 15 MG CAPSULE PO PRN (17:30)
[2019-06-10] MEDS ORDERED: MAG HYDROX/AL HYDROX/SIMETH 30 ML UDC PO PRN (17:30)
[2019-06-10] MEDS ORDERED: ACETAMINOPHEN 325 MG TABLET PO PRN (17:30)
[2019-06-10] MEDS ORDERED: ONDANSETRON HCL/PF 4 MG/2 ML VIAL IVP PRN (17:30)
[2019-06-10] MEDS ORDERED: MORPHINE SULFATE INJ 4 MG/ML DISP.SYRIN IV PRN (17:30)
[2019-06-10] MEDS ORDERED: MAGNESIUM HYDROXIDE 30 ML UDC PO PRN (17:30)
--- NOTE | 2019-06-10 17:31 | NUR ---
Report given to Gama CHAPPELL for gil
[2019-06-10 17:37] LABS: BAND % (MANUAL) 9 % (0.0-5.0); BASOPHILS % (MANUAL) 1 % (0.0-2.0); EOSINOPHILS % (MANUAL) 3 % (0-4); LYMPHOCYTES % (MANUAL) 22 % (16-48); MONOCYTES % (MANUAL) 8 % (0-11.0); NEUTROPHILS % (MANUAL) 57 (42-76)
--- NOTE | 2019-06-10 18:10 | NUR ---
received patient from er via gurney. patient is a/ox4, able to make needs known. ambulatory. not in any form of distress. no sob. chest pain 3/10 non radiating noted, will administer pain meds as ordered. hooked up to telemonitor, sb hr 58. situated the patient to the room. VSS. needs attended. instructed to use call light when assistance is needed. belongings checked and noted on belongings form by Radha collier. bed in low/locked position, siderails upx2, call light in reach. will endorsed to night rn for gil.
--- NOTE | 2019-06-10 19:48 | NUR ---
EXCAVATOR BACKHOE OPERATORBOILER REPAIR SUPERVISOR NOTES REPORT RECEIVED FROM RAFIQ CHAPPELL. PATIENT AWAKE AND RESTING IN BED. A/O X4. ON ROOM AIR. NO S/S OF ACUTE RESPIRATORY DISTRESS AND NO COMPLAINTS OF PAIN AT THIS TIME. TELE MONITOR READING SINUS RHYTHM, HEART RATE 63. HGB CURRENTLY 6.9, ORDER TO TRANSFUSE 1 UNIT PRBC PRESENT. IV PRESENT ON LEFT AC, SIZE 20, INTACT & PATENT, HEP LOCKED. BED LOCKED, LOW-WALTON'S POSITION, SIDE RAILS X2, CALL LIGHT WITHIN REACH. WILL CONTINUE TO MONITOR.
[2019-06-10 20:00] VITALS: BP 104/64
[2019-06-10 22:55] VITALS: BP 104/58
--- NOTE | 2019-06-10 22:58 | NUR ---
MS RN NOTES PATIENT RECEIVING 1 UNIT OF PRBC. VITAL SIGNS - BP: 104/58 HR: 49 RR: 18 TEMP: 97.8 SPO2: 100 ON ROOM AIR. WILL CONTINUE TO MONITOR.
[2019-06-10 23:10] VITALS: BP 103/60
--- NOTE | 2019-06-10 23:10 | NUR ---
MS RN NOTES 1 UNIT OF PRBC INFUSING. VITAL SIGNS - BP: 103/60 HR: 50 RR: 18 TEMP: 98.2 SPO2: 100 ON ROOM AIR. NO S/S OF ACUTE RESPIRATORY DISTRESS OR TRANSFUSION REACTION. PATIENT DENIES ANY SOB OR PAIN. WILL CONTINUE TO MONITOR.
[2019-06-10 23:23] VITALS: BP 132/121
--- NOTE | 2019-06-10 23:23 | NUR ---
MS RN NOTES PATIENT C/O OF SOB AND CHEST PAIN. BLOOD TRANSFUSION STOPPED. 4L OF O2 STARTED VIA NC. VITAL SIGNS - BP: 132/121 HR: 67 SPO2:100 TEMP: 98.2. TARUN FELICIANO CONTACTED AND MADE AWARE.
[2019-06-10 23:27] VITALS: BP 130/77
--- NOTE | 2019-06-10 23:27 | NUR ---
MS RN NOTES PATIENT STATED RELIEF OF CHEST PAIN AND SOB WITH 4L OF O2 VIA NC. VITAL SIGNS - BP: 130/77 HR: 56 RR: 22 SPO2: 100 TEMP: 98.2. PER TARUN SHOE STAINER, OK TO CONTINUE TRANSFUSING 1 UNIT PRBC
[2019-06-10 23:43] VITALS: BP 122/67
--- NOTE | 2019-06-10 23:43 | NUR ---
MS RN NOTES PATIENT'S VITAL SIGNS - BP: 122/67 HR: 45 RR: 18 TEMP: 98.2 SPO2: 100 ON 2L NC. 1 UNIT OF PRBC TRANSFUSING AT 80ML/HR. WILL CONTINUE TO MONITOR AT THE BEDSIDE.
--- NOTE | 2019-06-11 00:08 | NUR ---
MS RN NOTES PATIENTS VITAL SIGNS - BP: 121/65 HR: 51 RR: 18 SPO2: 100 ON 2L NC. NO S/S OF ACUTE RESPIRATORY DISTRESS. PATIENT DENIES ANY CHEST OR SOB. 1 UNIT OF PRBC TRANSFUSING AT 80ML/HR. WILL CONTINUE TO MONITOR.
--- NOTE | 2019-06-11 02:20 | NUR ---
MS RN NOTES 1 UNIT OF PRBC CONTINUING TO TRANSFUSE. NO S/S OF TRANSFUSION REACTION. PATIENT DENIES CHEST PAIN OR SOB. VITAL SIGNS - BP: 102/60 HR: 56 RR: 18 TEMP: 98.9 SPO2: 100 ON 2L NC. WILL CONTINUE TO MONITOR.
[2019-06-11 02:50] VITALS: BP 100/61
--- NOTE | 2019-06-11 02:55 | NUR ---
MS RN NOTES TRANSFUSION OF 1 UNIT PRBC COMPLETED. VITAL SIGNS - BP: 100/61 HR: 55 RR: 18 TEMP: 98.4 SPO2: 100 ON 2L NC. NO S/S OF ACUTE RESPIRATORY DISTRESS. PATIENT DENIES CHEST PAIN OR SOB. CALL LIGHT WITHIN REACH. WILL CONTINUE TO MONITOR.
[2019-06-11 05:05] VITALS: BP 109/70
--- NOTE | 2019-06-11 07:00 | NUR ---
MS?RN Opening Note Received patient AOx4, able to responds all stimuli. Denies pain or any discomfort. Skin is warm to touch kept clean/dry, intact IV site, Pt on oxygen 2L via n/c, respiratory even and unlabored. Kept lower bed position with elevated HOB. Call light within reach, will continue to monitor.
[2019-06-11] MEDS: PANTOPRAZOLE 40 MG TABLET.DR PO SCH (07:04)
[2019-06-11 07:07] LABS: BASOPHILS # (AUTO) 0.1 /CMM (0.0-0.2); BASOPHILS % (AUTO) 2.1 % (0.0-2.0); EOSINOPHILS % (AUTO) 2.9 % (0.0-6.0); HEMATOCRIT 25 % (33-45); HEMOGLOBIN 7.6 g/dL (11.5-14.8); LYMPHOCYTES # (AUTO) 1.8 /CMM (0.8-4.8); LYMPHOCYTES % (AUTO) 36.3 % (20.0-44.0); MEAN CORPUSCULAR HGB CONC 31 g/dl (31.0-36.0); MEAN CORPUSCULAR VOLUME 65 fL (82-100); MONOCYTES # (AUTO) 0.4 /CMM (0.1-1.30); MONOCYTES % (AUTO) 7.7 % (2.0-12.0); NEUTROPHILS # (AUTO) 2.5 /CMM (1.8-8.9); PLATELET COUNT (AUTO) 191 /CMM (150-450); RED BLOOD CELL COUNT(AUTO) 3.84 MIL/uL (4.0-5.2); WHITE BLOOD COUNT (AUTO) 4.9 K/uL (4.3-11.0)
--- NOTE | 2019-06-11 07:07 | NUR ---
MS RN CLOSING NOTES PATIENT AWAKE AND RESTING IN BED. A/O X 4. ON 2L NC. NO S/S OF ACUTE RESPIRATORY DISTRESS AND NO COMPLAINTS OF ANY PAIN AT THIS TIME. IV PRESENT ON LEFT AC, SIZE 20, INTACT & PATENT, HEP LOCKED. BED LOCKED, SEMI-WALTON'S POSITION WITH FEET ELEVATED, SIDE RAILS X2, CALL LIGHT WITHIN REACH. WILL ENDORSE TO DAY SHIFT NURSE TO FOLLOW PLAN OF CARE.
[2019-06-11 07:17] LABS: CALCIUM, SERUM 8.3 mg/dL (8.5-10.1); CREATININE 0.5 mg/dL (0.6-1.3); MAGNESIUM 1.8 mg/dL (1.8-2.4); PHOSPHORUS 2.8 mg/dL (2.5-4.9); POTASSIUM 3.6 mmol/L (3.5-5.1)
[2019-06-11 07:56] VITALS: BP 111/66
[2019-06-11] MEDS ORDERED: INFLUENZA VACCINE 2019-20 0.5 ML DISP.SYRIN IM ONE (10:00)
--- NOTE | 2019-06-11 10:00 | NUR ---
Patient refused flue shot.
[2019-06-11 11:52] LABS: LYMPHOCYTES % (MANUAL) 36 % (16-48); MONOCYTES % (MANUAL) 4 % (0-11.0); NEUTROPHILS % (MANUAL) 60 (42-76)
[2019-06-11 15:37] LABS: BASOPHILS # (AUTO) 0.1 /CMM (0.0-0.2); BASOPHILS % (AUTO) 1.1 % (0.0-2.0); EOSINOPHILS % (AUTO) 2.6 % (0.0-6.0); HEMATOCRIT 25 % (33-45); HEMOGLOBIN 7.5 g/dL (11.5-14.8); LYMPHOCYTES # (AUTO) 1.8 /CMM (0.8-4.8); MEAN CORPUSCULAR HGB CONC 30 g/dl (31.0-36.0); MEAN CORPUSCULAR VOLUME 65 fL (82-100); MONOCYTES # (AUTO) 0.4 /CMM (0.1-1.30); MONOCYTES % (AUTO) 6.4 % (2.0-12.0); NEUTROPHILS # (AUTO) 3.3 /CMM (1.8-8.9); NEUTROPHILS % (AUTO) 57.9 % (43.0-81.0); PLATELET COUNT (AUTO) 186 /CMM (150-450); RED BLOOD CELL COUNT(AUTO) 3.84 MIL/uL (4.0-5.2); WHITE BLOOD COUNT (AUTO) 5.6 K/uL (4.3-11.0)
--- NOTE | 2019-06-11 15:57 | NUR ---
Social service consult requested by Dr. Bess for clinic resources in the community. CHIEF RESERVOIR ENGINEERING reviewed chart. Per MD notes, pt. is a 43-year-old female patient who presented to the emergency department with a chief complaint of ongoing chest pain for the last 3 days, with associated back pain. According to the patient, the chest pain is worst when she takes a deep breath. The patient denies any significant medical history except for chronic anemia, which she was admitted also at [facility] in the past. The patient does not take any medications on a regular basis. The patient denies tobacco, alcohol, or illicit drug use. Furthermore, the patient also states that she's been having menometrorrhagia for the last 3 months. Pt. needs resources for clinics and [facility]. CHIEF RESERVOIR ENGINEERING met with the pt. bedside. Pt. is alert and oriented x 4. Pt resides with her family in [facility]. Pt is and has children. CHIEF RESERVOIR ENGINEERING provided pt. with the following resources: information to [facility] and other local [facility] and a list of [facility] health care centers and community clinics in [facility] and all of [facility]. No other social service needs are requested at this time. [facility] updated [facility] [place] regarding providing pt. with the requested resources.
[2019-06-11 16:00] VITALS: BP 113/70
--- NOTE | 2019-06-11 18:00 | NUR ---
MS/RN Closing note Pt is in bed comfortably and sleeping, denies pain or discomfort, skin is warm to touch, clean/dry. Kept lower bed positioned with elevated HOB. Respiratory even and unlabored. Call light within reach, will continue to monitor.
[2019-06-11 18:56] LABS: APPEARANCE,URINE SL CLOUDY (CLEAR); BILIRUBIN,URINE SMALL (NEGATIVE); BLOOD, URINE LARGE Ery/uL (NEGATIVE); COLOR,URINE AMBER (YELLOW); KETONES,URINE NEGATIVE (NEGATIVE); LEUKOCYTE ESTERASE ,URINE NEGATIVE (NEGATIVE); NITRITE, URINE NEGATIVE (NEGATIVE); PROTEIN,URINE 30 mg/dl (NEGATIVE); UGLUCOSE NEGATIVE (NEGATIVE); UROBILINOGEN,URINE 0.2 EU/dL (0.2)
[2019-06-11 19:03] LABS: BACTERIA,URINE Few /HPF (None Seen); RBC,URINE TOO NUMEROUS TO COUN /HPF (0-2); SQUAMOUS EPITHELIAL CELL,UR Few /HPF (None Seen)
[2019-06-11 19:04] LABS: MUCUS,URINE Many /LPF (None Seen)
--- NOTE | 2019-06-11 19:05 | NUR ---
MS/RN OPENING NOTES: RECEIVED PATIENT A/OX4. RESTING IN BED COMFORTABLY. VERBALLY RESPONSIVE AND ABLE TO MAKE NEEDS KNOWN. NO SOB NOTED, NO S/S OF ACUTE DISTRESS, BREATHING EVEN AND UNLABORED. NO COMPLAINS OF PAIN OR DISCOMFORT AT THIS TIME. SKIN IS WARM TO TOUCH AND DRY. IV SITE IS INTACT, ON THE LEFT AC #20G. PATENT AND FLUSHING WELL. SAFETY MEASURES IN PLACE. BED IS IN LOW, LOCKED POSITION WITH HOB ELEVATED. CALL LIGHT WITHIN EASY REACH. WILL CONTINUE TO MONITOR PT ACCORDINGLY.
[2019-06-11 20:00] VITALS: BP 105/67
--- NOTE | 2019-06-12 06:20 | NUR ---
MS/RN CLOSING NOTES: PATIENT IS IN BED RESTING COMFORTABLY. NO SIGNIFICANT CHANGES IN CONDITION. NO SOB NOTED, NO S/S OF ACUTE DISTRESS, BREATHING EVEN AND UNLABORED. NO COMPLAINS OF PAIN OR DISCOMFORT AT THIS TIME. IV SITE IS INTACT, ON THE LEFT AC #20G. PATENT AND FLUSHING WELL. KEPT PT WARM AND COMFORTABLE THROUGHOUT THE SHIFT. ALL NURSING NEEDS MET AND PROVIDED. SAFETY MEASURES KEPT IN PLACE. BED IS IN LOW, LOCKED POSITION WITH HOB ELEVATED. CALL LIGHT WITHIN EASY REACH. WILL ENDORSE TO DAY SHIFT NURSE FOR PARISH.
[2019-06-12 07:07] LABS: CALCIUM, SERUM 8.4 mg/dL (8.5-10.1); CREATININE 0.5 mg/dL (0.6-1.3); POTASSIUM 3.7 mmol/L (3.5-5.1)
[2019-06-12 07:11] LABS: BASOPHILS # (AUTO) 0.1 /CMM (0.0-0.2); BASOPHILS % (AUTO) 1.2 % (0.0-2.0); EOSINOPHILS % (AUTO) 1.8 % (0.0-6.0); HEMATOCRIT 25 % (33-45); HEMOGLOBIN 7.8 g/dL (11.5-14.8); LYMPHOCYTES # (AUTO) 1.8 /CMM (0.8-4.8); LYMPHOCYTES % (AUTO) 28.5 % (20.0-44.0); MEAN CORPUSCULAR HGB CONC 31 g/dl (31.0-36.0); MEAN CORPUSCULAR VOLUME 64 fL (82-100); MONOCYTES # (AUTO) 0.4 /CMM (0.1-1.30); MONOCYTES % (AUTO) 6.5 % (2.0-12.0); PLATELET COUNT (AUTO) 222 /CMM (150-450); RED BLOOD CELL COUNT(AUTO) 3.94 MIL/uL (4.0-5.2); WHITE BLOOD COUNT (AUTO) 6.4 K/uL (4.3-11.0)
[2019-06-12] MEDS: PANTOPRAZOLE 40 MG TABLET.DR PO SCH (07:46)
[2019-06-12 08:00] VITALS: BP 114/62
[2019-09-09] MEDS ORDERED: FERR325T23 PO (09:07)
== END 2019-06-12 12:30 | disposition home or self-care (01) | DRG 663 ==
LOC: ER 14:52 → TELE 17:08 → MED 20:44
PROVIDERS: ADMIT Nurse Practitioner Acute Care; ATTEND Nurse Practitioner Acute Care
PROC: 30233P1 Transfusion of Nonautologous Frozen Red Cells into Peripheral Vein, Percutaneous Approach (ICD-10-PCS; principal; 2019-06-10)
DX: D50.9 Iron deficiency anemia, unspecified (principal); K64.4 Residual hemorrhoidal skin tags; N92.1 Excessive and frequent menstruation with irregular cycle; N93.8 Other specified abnormal uterine and vaginal bleeding
CPT/HCPCS: 36415; 71045-TC; 76856-TC; 80048-TC; 81000-TC; 83735-TC; 84100-TC; 84484-TC; 84703-TC; 85025-TC; 86850-TC; 86921-TC; 87081-TC; G0378; J1885; J7040; P9016-BL

== ENCOUNTER 2019-09-07 21:19 | Inpatient (IN) | payer MEDICAID ==
[~2019-09-07] VITALS: Ht 157.5 cm; Wt 66.7 kg
--- NOTE | 2019-09-07 21:24 | NUR ---
BIB FOR C/O LOWER ABD PAIN AND HEAVY VAG BLEEDING X 2 MOS. PENDING CERVIAL BX RESULTS AT [facility], PT AAOX4, -SOB, NAD NOTED, VSS, PENDING MD ALVES
[2019-09-07] MEDS ORDERED: ONDANSETRON HCL/PF 4 MG/2 ML VIAL ONE (21:52)
[2019-09-07] MEDS ORDERED: MORPHINE SULFATE INJ 4 MG/ML DISP.SYRIN ONE (21:53)
[2019-09-07 21:55] LABS: BASOPHILS # (AUTO) 0.1 /CMM (0.0-0.2); BASOPHILS % (AUTO) 1.2 % (0.0-2.0); EOSINOPHILS % (AUTO) 0.4 % (0.0-6.0); HEMATOCRIT 27 % (33-45); HEMOGLOBIN 8.2 g/dL (11.5-14.8); LYMPHOCYTES # (AUTO) 1.5 /CMM (0.8-4.8); LYMPHOCYTES % (AUTO) 21.3 % (20.0-44.0); MEAN CORPUSCULAR HGB CONC 31 g/dl (31.0-36.0); MEAN CORPUSCULAR VOLUME 66 fL (82-100); MONOCYTES # (AUTO) 0.5 /CMM (0.1-1.30); MONOCYTES % (AUTO) 6.9 % (2.0-12.0); NEUTROPHILS # (AUTO) 4.9 /CMM (1.8-8.9); NEUTROPHILS % (AUTO) 70.2 % (43.0-81.0); PLATELET COUNT (AUTO) 264 /CMM (150-450); RED BLOOD CELL COUNT(AUTO) 4.08 MIL/uL (4.0-5.2)
--- NOTE | 2019-09-07 21:58 | NUR ---
PIV STARTED, BLOOD COLLECTED, SENT TO LAB
[2019-09-07] MEDS ORDERED: ONDANSETRON HCL/PF 4 MG/2 ML VIAL IVP ONE (22:00)
[2019-09-07] MEDS ORDERED: IV NS 0.9% 1,000 ML BAG IV ONE (22:00)
[2019-09-07] MEDS ORDERED: MORPHINE SULFATE INJ 2 MG/ML DISP.SYRIN IV ONE (22:00)
[2019-09-07 22:05] LABS: CALCIUM, SERUM 8.7 mg/dL (8.5-10.1); CREATININE 0.8 mg/dL (0.6-1.3); POTASSIUM 3.2 mmol/L (3.5-5.1)
[2019-09-07 23:54] LABS: BASOPHILS % (AUTO) 0.4 % (0.0-2.0); HEMATOCRIT 24 % (33-45); HEMOGLOBIN 7.1 g/dL (11.5-14.8); LYMPHOCYTES # (AUTO) 0.5 /CMM (0.8-4.8); LYMPHOCYTES % (AUTO) 5.7 % (20.0-44.0); MEAN CORPUSCULAR HGB CONC 30 g/dl (31.0-36.0); MEAN CORPUSCULAR VOLUME 66 fL (82-100); MONOCYTES # (AUTO) 0.4 /CMM (0.1-1.30); MONOCYTES % (AUTO) 4.9 % (2.0-12.0); NEUTROPHILS # (AUTO) 7.9 /CMM (1.8-8.9); PLATELET COUNT (AUTO) 224 /CMM (150-450); RED BLOOD CELL COUNT(AUTO) 3.54 MIL/uL (4.0-5.2); WHITE BLOOD COUNT (AUTO) 8.9 K/uL (4.3-11.0)
--- NOTE | 2019-09-08 | NUR ---
URINE COLLECTED AND SENT TO LAB
[2019-09-08 00:01] LABS: APPEARANCE,URINE Slightly Cloudy (CLEAR); BILIRUBIN,URINE SMALL (NEGATIVE); BLOOD, URINE Large Ery/uL (NEGATIVE); COLOR,URINE Dark (YELLOW); KETONES,URINE >=160 (NEGATIVE); LEUKOCYTE ESTERASE ,URINE Negative (NEGATIVE); NITRITE, URINE Negative (NEGATIVE); PH,URINE 5.5 (5.0-8.0); PROTEIN,URINE 100 mg/dl (NEGATIVE); UGLUCOSE Negative (NEGATIVE); UROBILINOGEN,URINE 0.2 EU/dL (0.2)
[2019-09-08 00:21] LABS: BACTERIA,URINE Moderate /HPF (None Seen); RBC,URINE TOO NUMEROUS TO COUN /HPF (0-2)
[2019-09-08 00:22] LABS: SQUAMOUS EPITHELIAL CELL,UR Moderate /HPF (None Seen)
[2019-09-08] MEDS ORDERED: IV NS 0.9% 1,000 ML BAG IV ONE (00:30)
--- NOTE | 2019-09-08 00:44 | NUR ---
CALL BACK PIN 10 MINUTES PER LYNETTE
[2019-09-08] MEDS ORDERED: ONDANSETRON HCL/PF 4 MG/2 ML VIAL IVP PRN (01:00)
[2019-09-08] MEDS ORDERED: MAGNESIUM HYDROXIDE 30 ML UDC PO PRN (01:00)
[2019-09-08] MEDS ORDERED: ZOLPIDEM TARTRATE 5 MG TABLET PO PRN (01:00)
[2019-09-08] MEDS ORDERED: HYDROCODONE/APAP 5/325MG 1 EACH TABLET PO PRN (01:00)
[2019-09-08] MEDS ORDERED: MAG HYDROX/AL HYDROX/SIMETH 30 ML UDC PO PRN (01:00)
[2019-09-08] MEDS ORDERED: ACETAMINOPHEN 325 MG TABLET PO PRN (01:00)
[2019-09-08] MEDS ORDERED: Z GUARD REMEDY 2 OZ OINT TP PRN (01:00)
[2019-09-08] MEDS ORDERED: ACET325T53 PO (01:01)
--- NOTE | 2019-09-08 01:01 | NUR ---
REPORT GIVEN TO TA NELSON
--- NOTE | 2019-09-08 01:08 | NUR ---
PT TRANSFERRED TO 310 IN STABLE CONDITION
[2019-09-08 01:20] VITALS: BP 103/64
--- NOTE | 2019-09-08 01:28 | NUR ---
MS RN: ADMISSION 44 years old female admitted for Anemia. Patient is A/O x4. Skin intact. Patient ambulates independently. Fall precaution maintained.
[2019-09-08 01:30] VITALS: BP 103/64
--- NOTE | 2019-09-08 06:58 | NUR ---
MS RN: END OF SHIFT REPORT Patient in bed, stable Oxygen saturation on room air. Denies nausea, no vomiting. Reports some abdominal tenderness left upper quadrant. H/H low, repeat lab today. Plan for consult Dr. Garrett. Will endorse to Oncoming RN.
[2019-09-08 08:00] VITALS: BP 103/65
[2019-09-08 08:12] LABS: BASOPHILS % (AUTO) 0.5 % (0.0-2.0); EOSINOPHILS % (AUTO) 0.1 % (0.0-6.0); HEMATOCRIT 25 % (33-45); HEMOGLOBIN 7.5 g/dL (11.5-14.8); LYMPHOCYTES # (AUTO) 1.3 /CMM (0.8-4.8); MEAN CORPUSCULAR HGB CONC 31 g/dl (31.0-36.0); MEAN CORPUSCULAR VOLUME 65 fL (82-100); MONOCYTES # (AUTO) 0.4 /CMM (0.1-1.30); MONOCYTES % (AUTO) 7.8 % (2.0-12.0); NEUTROPHILS # (AUTO) 3.7 /CMM (1.8-8.9); NEUTROPHILS % (AUTO) 67.6 % (43.0-81.0); PLATELET COUNT (AUTO) 241 /CMM (150-450); RED BLOOD CELL COUNT(AUTO) 3.78 MIL/uL (4.0-5.2); WHITE BLOOD COUNT (AUTO) 5.5 K/uL (4.3-11.0)
[2019-09-08 08:20] LABS: CALCIUM, SERUM 7.9 mg/dL (8.5-10.1); CREATININE 0.5 mg/dL (0.6-1.3); MAGNESIUM 1.9 mg/dL (1.8-2.4); POTASSIUM 3.6 mmol/L (3.5-5.1)
[2019-09-08] MEDS ORDERED: POTASSIUM CHLORIDE 20 MEQ TAB.PRT.SR PO ONE (10:00)
[2019-09-08] MEDS: FERROUS SULFATE (325 MG) 325 MG/TAB TABLET PO SCH ×2 (13:14→16:36)
[2019-09-08 16:00] VITALS: BP 119/68
--- NOTE | 2019-09-08 18:30 | NUR ---
MS/RN Closing Note Patient in bed comfortably, denies pain or any discomfort. Respiratory even and unlabored with room air, skin is warm to touch, clean/dry, intact IV site. Keep remain lower position of the bed with locked wheel for safety. Call light within reach, will endorse to fast food shift supervisor.
--- NOTE | 2019-09-08 19:17 | NUR ---
MS RN OPENING NOTES: RECEIVED PT ON ROOM AIR AND IS TOLERATING WELL. NO SOB NOTED. PT ON ROOM AIR. NO S/S OF DISTRESS. PT A/OX4. PT HS IV ON L AC#20G AND IS PATENT AND CURRENTLY H/L. PT SLOVAK SPEAKING ONLY BUT CAN UNDERSTAND AND SPEAK MINIMAL GUINEAN. BED KEPT IN LOW, LOCKED POSITION, AND SIDE RAILS X 2 UP. WILL CONTINUE TO MONITOR PT.
[2019-09-08 20:00] VITALS: BP 97/61
[2019-09-09 04:02] VITALS: BP 102/59
--- NOTE | 2019-09-09 06:21 | NUR ---
MS RN CLOSING NOTES: ALL NEEDS WERE ATTENDED AND ANTICIPATED FOR. PT'S IV ON L AC REMAINS INTACT. CURRENTLY H/L. PT RESTING COMFORTABLY AT THIS TIME. PT A/OX4. NO SOB NOTED. NO S/S OF DISTRESS. BED KEPT IN LOW, LOCKED POSITION, AND SIDE RAILS X 2 UP. WILL ENDORSE TO AM NURSE FOR PARISH.
[2019-09-09 07:03] LABS: BASOPHILS % (AUTO) 0.7 % (0.0-2.0); EOSINOPHILS % (AUTO) 0.4 % (0.0-6.0); HEMATOCRIT 24 % (33-45); HEMOGLOBIN 7.4 g/dL (11.5-14.8); LYMPHOCYTES % (AUTO) 20.4 % (20.0-44.0); MEAN CORPUSCULAR HGB CONC 30 g/dl (31.0-36.0); MEAN CORPUSCULAR VOLUME 65 fL (82-100); MONOCYTES # (AUTO) 0.3 /CMM (0.1-1.30); MONOCYTES % (AUTO) 6.9 % (2.0-12.0); NEUTROPHILS # (AUTO) 3.4 /CMM (1.8-8.9); NEUTROPHILS % (AUTO) 71.6 % (43.0-81.0); PLATELET COUNT (AUTO) 225 /CMM (150-450); RED BLOOD CELL COUNT(AUTO) 3.75 MIL/uL (4.0-5.2); WHITE BLOOD COUNT (AUTO) 4.8 K/uL (4.3-11.0)
[2019-09-09 07:10] LABS: ALBUMIN 3.1 g/dL (3.4-5.0); BILIRUBIN,TOTAL 0.2 mg/dL (0.2-1.0); CREATININE 0.5 mg/dL (0.6-1.3); MAGNESIUM 1.8 mg/dL (1.8-2.4); PHOSPHORUS 2.5 mg/dL (2.5-4.9); POTASSIUM 3.8 mmol/L (3.5-5.1); TOTAL PROTEIN, SERUM 6.7 g/dL (6.4-8.2)
--- NOTE | 2019-09-09 07:11 | NUR ---
RN NOTES: ENDORSED TO AM NURSEECHO, FOR PARISH. PT ASLEEP COMFORTABLY.
--- NOTE | 2019-09-09 07:30 | NUR ---
MS/RN Opening Note Patient received AO x 4, able to responds all stimuli. Pt denies pain or nay discomfort, skin is warm to touch, kept clean/dry, intact IV site. Respiratory even and unlabored with room air. Keep lower position of the bed with locked wheel for safety. Call light within reach, will continue to monitor.
[2019-09-09 08:00] VITALS: BP 107/62
[2019-09-09] MEDS: FERROUS SULFATE (325 MG) 325 MG/TAB TABLET PO SCH (09:02)
[2019-09-09] MEDS ORDERED: FERR325T23 PO (09:07)
[2019-09-09 11:40] VITALS: BP 103/60
--- NOTE | 2019-09-09 13:40 | NUR ---
Given discharge instruction include prescribed medication/side effect, pt verbally understanding. Denies pain or any discomfort, left facility accompanied by staff, refused wheel chair, in stable condition.
== END 2019-09-09 13:45 | disposition home or self-care (01) | DRG 532 ==
LOC: ER 21:20 → MED 09-08 00:41
PROVIDERS: ADMIT Nurse Practitioner Acute Care; ATTEND Nurse Practitioner Acute Care
DX: N93.9 Abnormal uterine and vaginal bleeding, unspecified (principal); D64.9 Anemia, unspecified; Z98.890 Other specified postprocedural states; E87.6 Hypokalemia; K64.9 Unspecified hemorrhoids
CPT/HCPCS: 36415; 76856-TC; 80048-TC; 80053-TC; 80061-TC; 81000-TC; 83735-TC; 84100-TC; 84702-TC; 84703-TC; 85025-TC; 86850-TC; 87081-TC; 87086-TC; G0378; J2270; J2405; J7030

== ENCOUNTER 2019-09-15 00:06 | Emergency (ER) | payer MEDICAID ==
[~2019-09-15] VITALS: Ht 167.6 cm; Wt 72.6 kg
[~2019-09-15 00:06] MED LIST: FERR325T23 PO
--- NOTE | 2019-09-15 00:08 | NUR ---
PT BIB SELF C/O SEVERE MIDSTERNAL CP X1 WEEK, LOW BACK PAIN, PT IS AAOX4 GRENADIAN SPEAKING ONLY, NOT IN RESPIRATORY DISTRESS, HOOKED TO SCIENTIFIC INFORMATICS LEADER, KEPT RESTED AND COMFORTABLE, WILL CONTINUE TO MONITOR.
--- NOTE | 2019-09-15 00:15 | NUR ---
SEEN AND EXAMINED BY .
--- NOTE | 2019-09-15 00:20 | NUR ---
IV LINE ESTABLISHED, BLOOD DRAWN AND SENT TO LAB.
[2019-09-15] MEDS ORDERED: oxyCODONE/APAP (5/325 MG) 1 UDTAB TABLET ONE (00:29)
[2019-09-15] MEDS ORDERED: NITROGLYCERIN PACKET 1 GM PACKET ONE (00:29)
[2019-09-15] MEDS ORDERED: oxyCODONE/APAP (5/325 MG) 1 UDTAB TABLET PO ONE (00:30)
[2019-09-15] MEDS ORDERED: NITROGLYCERIN PACKET 1 GM PACKET TD ONE (00:30)
[2019-09-15] MEDS ORDERED: LORAZEPAM INJ 2 MG/ML VIAL ONE (00:31)
[2019-09-15 00:34] LABS: HEMOGLOBIN 8.2 g/dL (11.5-14.8); RED BLOOD CELL COUNT(AUTO) 3.98 MIL/uL (4.0-5.2)
--- NOTE | 2019-09-15 00:36 | NUR ---
TRIM CARPENTER AT BEDSIDE FOR XRAY.
[2019-09-15 00:38] LABS: BASOPHILS % (AUTO) 0.5 % (0.0-2.0); EOSINOPHILS % (AUTO) 0.3 % (0.0-6.0); HEMATOCRIT 27 % (33-45); LYMPHOCYTES # (AUTO) 1.2 /CMM (0.8-4.8); LYMPHOCYTES % (AUTO) 16.5 % (20.0-44.0); MEAN CORPUSCULAR HGB CONC 31 g/dl (31.0-36.0); MEAN CORPUSCULAR VOLUME 67 fL (82-100); MONOCYTES # (AUTO) 0.5 /CMM (0.1-1.30); MONOCYTES % (AUTO) 6.5 % (2.0-12.0); NEUTROPHILS # (AUTO) 5.5 /CMM (1.8-8.9); NEUTROPHILS % (AUTO) 76.2 % (43.0-81.0); PLATELET COUNT (AUTO) 248 /CMM (150-450); WHITE BLOOD COUNT (AUTO) 7.2 K/uL (4.3-11.0)
[2019-09-15 00:43] LABS: CALCIUM, SERUM 8.6 mg/dL (8.5-10.1); CARBON DIOXIDE 23 mmol/L (21-32); CHLORIDE 100 mmol/L (98-107); CREATININE 0.9 mg/dL (0.6-1.3); GLUCOSE 130 mg/dL (74-106); POTASSIUM 3.4 mmol/L (3.5-5.1); SODIUM SERUM 137 mmol/L (136-145); UREA NITROGEN, BLOOD 17 mg/dL (7-18)
[2019-09-15 00:55] LABS: ALANINE AMINOTRANSFERASE 18 U/L (12-78); ALBUMIN 3.4 g/dL (3.4-5.0); ALKALINE PHOSPHATASE 63 U/L (46-116); ASPARTATE AMINOTRANSFERASE 17 U/L (15-37); B-TYPE NATRIURETIC PEPTIDE 43 PG/ML (0-125); BILIRUBIN,DIRECT 0.1 mg/dL (0.0-0.2); BILIRUBIN,TOTAL 0.4 mg/dL (0.2-1.0); TOTAL PROTEIN, SERUM 7.9 g/dL (6.4-8.2)
[2019-09-15] MEDS ORDERED: LORAZEPAM INJ 2 MG/ML VIAL IV ONE (01:00)
[2019-09-15] MEDS ORDERED: IV NS 0.9% 1,000 ML BAG IV ONE (01:00)
--- NOTE | 2019-09-15 03:28 | NUR ---
PHLEB AT BEDSIDE FOR REPEAT TROPONIN DRAW.
[2019-09-15 04:09] VITALS: BP 104/58
--- NOTE | 2019-09-15 04:09 | NUR ---
IV removed. Catheter intact and site benign. Pressure and 4x4 applied to site. No bleeding noted. Patient discharged to home in stable condition. Written and verbal after care instructions given. Patient verbalizes understanding of instruction.
== END 2019-09-15 04:10 | disposition home or self-care (01) ==
LOC: ER 00:07
DX: R07.89 Other chest pain (principal); M54.5 Low back pain; G89.29 Other chronic pain; D64.9 Anemia, unspecified; N93.8 Other specified abnormal uterine and vaginal bleeding; R42 Dizziness and giddiness; Z98.890 Other specified postprocedural states; Z79.899 Other long term (current) drug therapy
CPT/HCPCS: 36415; 71045; 80048; 80076; 83880; 84484 ×2; 85025; 85730; 93005; 96361; 96374; 99285; J2060; J7030